=== PATIENT | female | born 1950 | race Caucasian/White ===

== ENCOUNTER 2018-06-30 17:22 | Emergency (ER) | payer OTHER ==
[~2018-06-30] VITALS: Ht 160 cm; Wt 67.1 kg
[2018-06-30] MEDS ORDERED: ATORVASTATIN CA20 MG (17:59)
[2018-06-30] MEDS ORDERED: WELLBUTRIN XL150 M1 (18:00)
[2018-06-30] MEDS ORDERED: LOSARTAN-HCTZ1 EAC2 (18:00)
[2018-06-30] MEDS ORDERED: GLIMEPIRIDE2 MG (18:00)
[2018-06-30] MEDS ORDERED: TRAZODONE HCL50 MG (18:00)
[2018-06-30] MEDS ORDERED: [UNRECOGNIZED DRUG - OTHER] (18:01)
== END 2018-06-30 21:05 | disposition home or self-care (01) ==
LOC: ER 17:22
DX: S83.8X2A Sprain of other specified parts of left knee, initial encounter (principal); X50.0XXA Overexertion from strenuous movement or load, initial encounter; Y93.89 Activity, other specified; Y92.89 Other specified places as the place of occurrence of the external cause; Y99.8 Other external cause status

== ENCOUNTER 2021-06-04 13:17 | Emergency (ER) | payer OTHER ==
[~2021-06-04] VITALS: Ht 160 cm; Wt 63.5 kg
[~2021-06-04 13:17] MED LIST: ATORVASTATIN CA20 MG; GLIMEPIRIDE2 MG; LOSARTAN-HCTZ1 EAC2; TRAZODONE HCL50 MG; WELLBUTRIN XL150 M1; [UNRECOGNIZED DRUG - OTHER]
[2021-06-04] MEDS ORDERED: TRULICITY1.5 MG/0.5 SQ (13:31)
== END 2021-06-04 21:42 | disposition home or self-care (01) ==
LOC: ER 13:17 → CPU-OBS 16:45 → ER 21:42
DX: R07.89 Other chest pain (principal); Z03.818 Encounter for observation for suspected exposure to other biological agents ruled out